=== PATIENT | male | born 1990 | race African-American/Black ===

== ENCOUNTER 2017-04-23 12:24 | Emergency (ER) | payer SELFPAY ==
[~2017-04-23] VITALS: Ht 182.9 cm; Wt 77.3 kg
[2017-04-23 12:26] VITALS: BP 133/65; PULSE 73; RESP 14; TEMP 98.4; O2SAT 98
--- NOTE | 2017-04-23 14:01 | RADRPT ---
EXAM DATE/TIME: 04/23/2017 13:36 This report includes an Addendum and supersedes previous reports for this exam. [facility] COMPARISON: No previous studies available for comparison. INDICATIONS : Left wrist pain, fall. MEDICAL HISTORY : None. SURGICAL HISTORY : None. ENCOUNTER: Initial ACUITY: 1 day PAIN SCORE: 9/10 LOCATION: Left posterior medial side of wrist. FINDINGS: Three view examination of the left wrist demonstrates no soft tissue swelling, dislocation, or fractu re. The carpal bones are in normal alignment. The joint spaces are maintained. Bony mineralization is normal. CONCLUSION: No acute disease. Jair Allen MD on April 23, 2017 at 13:58 Board Certified Radiologist. This report was verified electronically. ADDENDUM: There is questionable subluxation of the distal ulna. Clinical correlation. Jose Ramon Steward MD on April 23, 2017 at 14:32 Board Certified Radiologist. This report was verified electronically.
--- NOTE | 2017-04-23 14:31 | PD ---
HPI Chief Complaint: Injury Time Seen by Provider: 13:04 Travel History International Travel<30 days: No Contact w/Intl Traveler<30days: No Traveled to known affect area: No History of Present Illness HPI 26-year-old male presents with left wrist pain. He fell on his outstretched hand yesterday when he was running. He has pain in his medial left writs which is aching and worse with movement. He has difficulty with supination. Denies any other injuries and he has no other complaints. [facility] Past Medical History Medical History: Denies Significant Hx Past Surgical History Surgical History: No Previous Surgery Social History Alcohol Use: Yes ([facility]) Tobacco Use: No Substance Use: No Allergies-Medications (Allergen,Severity, Reaction): Coded Allergies: No Known Allergies (Verified Allergy, Unknown, 04/23/17) Reported Meds & Prescriptions Reported Meds & Active Scripts Active No Active Prescriptions or Reported Medications Review of Systems Except as stated in HPI: all other systems reviewed are Neg Physical Exam Narrative GENERAL: Well-nourished male in no acute distress SKIN: Warm and dry. Abrasions to both hands. HEAD: Atraumatic. Normocephalic. EYES: Pupils equal and round. No scleral icterus. No injection or drainage. ENT: No nasal bleeding or discharge. Mucous membranes pink and moist. NECK: Trachea midline. No JVD. CARDIOVASCULAR: Regular rate and rhythm. No murmur appreciated. RESPIRATORY: No accessory muscle use. Clear to auscultation. Breath sounds equal bilaterally. MUSCULOSKELETAL: Tender to palpation to the distal left ulna. The patient is unable to supinate his wrist. He has limited flexion and extension of the left wrist. Capillary refill less than 2 seconds all digits left hand. 2+ radial pulse. NEUROLOGICAL: Awake and alert. No obvious cranial nerve deficits. Motor grossly within normal limits. Normal speech. Data Data Last Documented VS Vital Signs Date Time Temp Pulse Resp B/P (MAP) Pulse Ox O2 Delivery O2 Flow Rate FiO2 04/23/17 12:26 98.4 73 14 133/65 (87) 98 Orders Orders Wrist, Complete ([id number]) (04/23/17 ) Mandatory Outpatient Referral (04/23/17 15:28) Splint Or Brace Apply/Monitor (04/23/17 15:28) Ed Discharge Order (2/8/18 15:28) [facility] Medical Decision Making Medical Screen Exam Complete: Yes Emergency Medical Condition: Yes Medical Record Reviewed: Yes Differential Diagnosis Wrist fracture, ligamentous disruption, sprain, dislocation Narrative Course X-ray and examination are consistent with subluxation of the distal left ulna. I discussed with the on-call orthopedist Dr. Lockett who would like the patient to follow-up in his office, likely he will require outpatient MRI imaging. The patient was placed in a sugar tong splint. A mandatory outpatient referral was placed. I discussed these instructions with the patient who verbalizes understanding. He is stable for discharge. Diagnosis Primary Impression: Closed traumatic subluxation of left wrist Referrals: Sagar Lockett Jr., MD Additional Instructions: Do not remove the splint. Follow-up with Dr. Lockett in the next week, call his office to make an appointment. Tylenol or Motrin for pain. Return for any emergent medical conditions. Med/Other Pt SpecificInfo: Orthopedic Instructions Scripts No Active Prescriptions or Reported Meds Disposition: 01 DISCHARGE HOME Condition: Stable Froilan Luu Apr 23, 2017 14:31
== END 2017-04-23 16:14 | disposition home or self-care (01) ==
LOC: NEPK 12:24
DX: S63.072A Subluxation of distal end of left ulna, initial encounter (principal); W19.XXXA Unspecified fall, initial encounter; Y93.02 Activity, running
CPT/HCPCS: 29125; 73110